=== PATIENT | female | born 1950 | race Caucasian/White ===

== ENCOUNTER → 2023-12-24 13:21 | Outpatient (REF) | payer OTHER, SELFPAY | LOC: HWWDC 13:21 | PROVIDERS: ATTENDING PHYSICIAN Family Medicine | DX: Z12.31 Encounter for screening mammogram for malignant neoplasm of breast (principal) | CPT/HCPCS: 77063; 77067 ==

== ENCOUNTER → 2024-05-21 15:27 | Outpatient (REF) | payer OTHER, SELFPAY | LOC: PAVMRI 15:27 | PROVIDERS: ATTENDING PHYSICIAN Orthopaedic Surgery; FAMILY PHYSICIAN Family Medicine | DX: M25.562 Pain in left knee (principal) | CPT/HCPCS: 73721 ==

== ENCOUNTER → 2024-12-29 10:27 | Outpatient (REF) | payer OTHER, SELFPAY | LOC: HWWDC 10:27 | PROVIDERS: ATTENDING PHYSICIAN Family Medicine; FAMILY PHYSICIAN Hospitalist | DX: Z12.31 Encounter for screening mammogram for malignant neoplasm of breast (principal); M81.0 Age-related osteoporosis without current pathological fracture | CPT/HCPCS: 77063; 77067; 77080 ==